=== PATIENT | male | born 1940 | race Caucasian/White ===

== ENCOUNTER → 2016-08-20 | Day surgery (SDC) | payer MEDICARE, OTHER ==
[2016-08-20 12:36] VITALS: BP 142/76; TEMP 97.5
== END ==
LOC: BUR/OP 11:05
PROVIDERS: ATTEND Family Medicine
DX: S61.412A Laceration without foreign body of left hand, initial encounter (principal); Z23 Encounter for immunization

== ENCOUNTER 2016-09-03 10:45 | Outpatient (CLI) | payer MEDICARE, OTHER ==
[2016-09-03 11:45] LABS: ALT (SGPT) 25 U/L (0-55); AST (SGOT) 18 U/L (5-34); Alkaline Phosphatase 80 U/L (40-150); Anion Gap 11 mmol/L (10-20); BUN (Urea Nitrogen) 19 mg/dL (8.4-25.7); Bilirubin, Total 0.6 mg/dL (0.2-1.2); Calc. Creatinine Clearance 0 mL/min (70-130); Calcium 8.7 mg/dL (7.8-10.44); Carbon Dioxide 27 mmol/L (23-31); Chloride 110 mmol/L (98-107); Estimated GFR-MDRD 81; Globulin 2.3 g/dL (2.4-3.5); LDL Cholesterol, Calculated 60 mg/dL; Protein, Total 6.3 g/dL (5.8-8.1)
[2016-09-03 11:53] LABS: #Eosinphils 0.2 thou/uL (0.0-0.7); #Lymphocytes 1.2 thou/uL (1.20-3.40); #Monocytes 0.6 thou/uL (0.11-0.59); #Neutrophils 4.5 thou/uL (1.40-6.50); %Basophils 0.7 % (0.0-1.0); %Eosinophils 3.6 % (0.0-10.0); %Monocytes 9.3 % (0.0-10.0); Hematocrit 48.1 % (42.0-52.0); Mean Platelet Volume 6.7 fL (7.4-10.4); Red Blood Cell (RBC) Count 5.04 mill/uL (4.70-6.10); White Blood Cell (WBC) Count 6.7 thou/uL (4.8-10.8)
== END 2016-09-03 10:46 | disposition home or self-care (01) ==
LOC: HPCALD 10:45
PROVIDERS: ATTEND Family Medicine
DX: E78.5 Hyperlipidemia, unspecified (principal); N40.1 Benign prostatic hyperplasia with lower urinary tract symptoms; I10 Essential (primary) hypertension
CPT/HCPCS: 36415; 80053; 80061; 84153; 84443; 85025

== ENCOUNTER 2017-03-17 16:19 | Emergency (ER) | payer MEDICARE, OTHER | END 2017-03-17 18:25 | disposition home or self-care (01) | LOC: BURERS 16:19 | DX: S81.012A Laceration without foreign body, left knee, initial encounter (principal); I10 Essential (primary) hypertension; I25.2 Old myocardial infarction; F17.200 Nicotine dependence, unspecified, uncomplicated; W27.1XXA Contact with garden tool, initial encounter | CPT/HCPCS: 12032 ==